=== PATIENT | female | born 1945 | race Caucasian/White ===

== ENCOUNTER 2024-05-26 05:43 | Day surgery (SDC) | payer MEDICARE ==
[2024-05-26] MEDS: Lactated Ringers 1,000 ML IV SCH (06:36)
[2024-05-26 06:47] LABS: Absolute Neutrophil Ct (ANC) 2.97 x10^3/uL (1.56-6.13); BASOPHIL % 0.2 % (0.1-1.2); Basophil (Absolute #) 0.01 x10^3/uL (0.01-0.08); Eosinophil % 1.4 % (0.7-5.8); Eosinophil (Absolute #) 0.07 x10^3/uL (0.04-0.36); Hematocrit 37.7 % (34.1-44.9); Hemoglobin 12.6 g/dL (11.2-15.7); IMMATURE GRAN # 0.01 x10^3u/L (0.001-0.031); IMMATURE GRAN % 0.2 % (0.001-0.429); Lymphocyte (Absolute #) 1.58 x10^3/uL (1.18-3.74); Lymphocytes % 30.9 % (19.3-51.7); Mean Cell Volume 86.7 fL (79.4-94.8); Mean Corpuscular Hgb Concent. 33.4 g/dL (32.2-35.5); Mean Platelet Volume 10.1 fL (9.4-12.3); Monocyte (Absolute #) 0.47 x10^3/uL (0.24-0.86); Monocytes % 9.2 % (4.7-12.5); Neutrophil % 58.1 % (34.0-71.1); Platelet Count 208 x10^3/uL (182-369); Red Blood Count 4.35 x10^6/uL (3.93-5.22); Red Cell Distribution Width 12.7 % (11.7-14.4); White Blood Count 5.1 x10^3/uL (3.98-10.04)
[2024-05-26 06:59] LABS: ANION GAP 12.3 MEQ/L (5-15); Calcium 9.9 mg/dL (8.4-10.2); Creatinine 1 0.79 mg/dL (0.52-1.04); EST GLOMERULAR FILTRATION RATE 77.5 ML/MIN; Potassium 3.3 mmol/L (3.5-5.1)
[2024-05-26] MEDS ORDERED: Zofran 4 MG/2 ML VIAL ONE (07:27)
[2024-05-26] MEDS ORDERED: Versed 2 MG/2 ML Injection ONE (07:28)
[2024-05-26] MEDS ORDERED: propofoL IV ONE ×2 (07:28→07:49)
[2024-05-26 08:16] VITALS: TEMP 96.3
[2024-05-26 08:29] VITALS: O2SAT 97
[2024-05-26 08:40] VITALS: BP 137/60; PULSE 64; RESP 18
--- NOTE | 2024-05-27 11:47 | OP ---
SURGERY DATE/TIME: 05/26/2024 [id number] PREOPERATIVE DIAGNOSES: 1) History of Rich esophagus. 2) History of colon polyps and son with colon cancer. POSTOPERATIVE DIAGNOSES: 1) Hiatal hernia. 2) Mild diverticulosis of the sigmoid colon and small transverse colon polyp. PROCEDURE: 1) Esophagogastroduodenoscopy. 2) Colonoscopy with cold forceps biopsy. SURGEON: Denilson Escobar MD ANESTHESIA: Medication given by the anesthesia department. INDICATIONS: The patient is a 78-year-old white female who presents now for endoscopic evaluation. She reports a history of having what sounds to be Rich esophagus and hiatal hernia. She has also had colon polyps removed, and her son has recently been diagnosed with colon cancer. The patient is felt to need to have endoscopic evaluation. She was appraised of the risks of the procedure including risk of perforation, phlebitis, untoward reaction to medication, bleeding, and missed lesions. The patient verbalized her understanding and desired to have procedure performed. DESCRIPTION OF PROCEDURE AND FINDINGS: The patient was placed in left lateral decubitus position. A bite block was placed and flexible Olympus gastroscope was used to intubate the oropharynx. The esophagus appeared to be essentially normal throughout its length other than a small hiatal hernia. The stomach was entered where normal gastric rugal folds were seen. These distended nicely with insufflation of air. The scope was passed along the greater curvature of the stomach to the antrum. Pylorus was encountered and intubated. Duodenum was inspected and found to be normal. Scope was withdrawn toward the stomach and a retroflexed view was obtained of the lesser curvature, fundus, and cardia regions of the stomach and these appeared to be essentially normal other than the aforementioned small hiatal hernia. The scope was then removed from the patient. Next, a digital rectal examination was performed and revealed normal anal sphincter tone and no masses. Flexible Olympus videocolonoscope was used to intubate the rectum. A view of the colon was developed sequentially to the cecum. Upon insertion and withdrawal, there was noted a small transverse colon polyp. This was removed using multiple passes of the cold forceps biopsy instrument. No other mucosal lesions being encountered other than mild sigmoid diverticulosis, the scope was removed from the patient who tolerated the procedure well and sent back to outpatient recovery in good condition. The prep was noted to be fair to good.
== END 2024-05-26 08:43 | disposition home or self-care (01) ==
LOC: SDC 05:43
PROVIDERS: ATTEND Family Medicine
DX: Z09 Encounter for follow-up examination after completed treatment for conditions other than malignant neoplasm (principal); Z86.0100 Personal history of colon polyps, unspecified; Z80.0 Family history of malignant neoplasm of digestive organs; Z87.19 Personal history of other diseases of the digestive system; K44.9 Diaphragmatic hernia without obstruction or gangrene; K57.30 Diverticulosis of large intestine without perforation or abscess without bleeding; K63.5 Polyp of colon
CPT/HCPCS: 36415; 80048; 85025; 93005; 99100; J2250; J2405; J2704